=== PATIENT | male | born 1980 | race Caucasian/White ===

== ENCOUNTER → 2020-11-09 | Outpatient (CLI) | payer OTHER, SELFPAY ==
[2020-11-09 09:28] VITALS: BMI 35.8
== END | disposition home or self-care (01) ==
LOC: LABSPEC 10:07
PROVIDERS: Referring Provider Physician Assistant Surgical; Visit Provider Physician Assistant Surgical
DX: Z71.84 Encounter for health counseling related to travel (principal)
CPT/HCPCS: 87635; U0005; U0003